=== PATIENT | female | born 1985 | race African-American/Black ===

== ENCOUNTER 2016-10-27 18:16 | Emergency (ER) | payer SELFPAY ==
[~2016-10-27 18:16] MED LIST: ALBU8I INH; AZIT250T74 PO; DILA100C PO; DUONI INH; GUAI600 PO; LACT PO; LORTA5 PO; NEBUMIS6 INH; NOVORP2 SQ; PRED10PA PO; PRED5TAB PO; PROT40TA PO; REGL5TAB PO
[2016-10-27 18:22] VITALS: BP 143/75; PULSE 104; RESP 17; TEMP 98.1; O2SAT 98
[2016-10-27] MEDS ORDERED: ONDANSETRON HCL 4 MG/2 ML VIAL IV PUSH ONE (18:30)
[2016-10-27] MEDS ORDERED: methylPREDNISolone SOD SUCC 125 MG/2 ML VIAL IV PUSH ONE (18:30)
[2016-10-27] MEDS ORDERED: SODIUM CHLOR 0.9% 1000 ML INJ 1,000 ML IV ONE (18:30)
[2016-10-27] MEDS ORDERED: ACETAMINOPHEN 500 MG CPLT PO ONE (18:30)
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
[2016-10-27] MEDS ORDERED: RESP: ALBUTEROL 2.5 MG/IPRATROPIUM 0.5 MG NEB (PRN) ONE (18:39)
[2016-10-27] MEDS: RESP: ALBUTEROL 2.5 MG/IPRATROPIUM 0.5 MG NEB (SCH) INH ×3 (18:40→18:48)
--- NOTE | 2016-10-27 19:13 | RADRPT ---
EXAM DATE/TIME: 10/27/2016 18:24 [facility] COMPARISON: CHEST SINGLE AP, February 13, 2014, 15:44. INDICATIONS : Cough for 3 days. MEDICAL HISTORY : None. SURGICAL HISTORY : None. ENCOUNTER: Initial ACUITY: 1 day PAIN SCORE: 0/10 LOCATION: Bilateral chest FINDINGS: A single view of the chest demonstrates the lungs to be symmetrically aerated without evidence of mas s, infiltrate or effusion. The cardiomediastinal contours are unremarkable. Osseous structures are intact. CONCLUSION: No acute disease. There is no evidence of pneumonia. Mello Valdes MD on October 27, 2016 at 19:11 Board Certified Radiologist. This report was verified electronically.
[2016-10-27 19:19] LABS: AUTOMATED NEUTROPHIL # 6.8 TH/MM3 (1.8-7.7); BASOPHIL % 0.4 % (0.0-2.0); EOSINOPHIL # 0.3 TH/MM3 (0-0.4); EOSINOPHIL % 2.2 % (0.0-4.0); HEMATOCRIT 37.8 % (35.0-46.0); HEMO FLAGS DIFF FINAL; LYMPH % 35.5 % (9.0-44.0); LYMPHOCYTE # 4.5 TH/MM3 (1.0-4.8); MEAN CORPUSCULAR HEMOGLOBIN 22.7 PG (27.0-34.0); MEAN CORPUSCULAR HGB CONC 30.6 % (32.0-36.0); NEUT % 53.9 % (16.0-70.0); PLATELET COUNT 393 TH/MM3 (150-450); RED CELL DISTRIBUTION WIDTH 18.5 % (11.6-17.2); WHITE BLOOD COUNT 12.6 TH/MM3 (4.0-11.0)
[2016-10-27] MEDS ORDERED: ABIL30TA2 PO (19:25)
[2016-10-27] MEDS ORDERED: NOVORP2 SQ (19:25)
[2016-10-27] MEDS ORDERED: VENTAER INH (19:25)
[2016-10-27] MEDS ORDERED: PRED10PA PO (19:25)
[2016-10-27] MEDS ORDERED: PRED5TAB PO (19:25)
[2016-10-27] MEDS ORDERED: MUCI30TA2 PO (19:25)
[2016-10-27] MEDS ORDERED: DILA100C PO (19:25)
[2016-10-27] MEDS ORDERED: ZITH250T PO (19:25)
[2016-10-27] MEDS ORDERED: PROT40TA PO (19:25)
[2016-10-27] MEDS ORDERED: ALBU0.08 NEB (19:25)
[2016-10-27] MEDS ORDERED: REGL5TAB PO (19:25)
[2016-10-27] MEDS ORDERED: NORC5TAB PO (19:25)
[2016-10-27 19:33] LABS: ANION GAP 8 MEQ/L (5-15); AST (GOT) 12 U/L (15-37); BICARBONATE 23.2 MEQ/L (21.0-32.0); BLOOD UREA NITROGEN 8 MG/DL (7-18); CHLORIDE 104 MEQ/L (98-107); GLOMERULAR FILTRATION RATE 126 ML/MIN (>89); SODIUM (NA) 135 MEQ/L (136-145)
[2016-10-27 19:34] LABS: ALT (GPT) 21 U/L (10-53)
[2016-10-27 19:36] LABS: ALKALINE PHOSPHATASE 140 U/L (45-117); TOTAL BILIRUBIN ADULT 0.2 MG/DL (0.2-1.0)
[2016-10-27] MEDS ORDERED: PRED20 PO (19:58)
[2016-10-27] MEDS ORDERED: AZIT250T3 PO (19:58)
[2016-10-27] MEDS ORDERED: ALBUAER3 INH (19:58)
[2016-10-27] MEDS ORDERED: ZOFR4TAB3 SL (20:07)
== END 2016-10-27 21:06 | disposition home or self-care (01) ==
LOC: NEPD 18:16
DX: J20.9 Acute bronchitis, unspecified (principal); J45.909 Unspecified asthma, uncomplicated; Z72.0 Tobacco use; N28.9 Disorder of kidney and ureter, unspecified; E10.9 Type 1 diabetes mellitus without complications; Z79.4 Long term (current) use of insulin; I10 Essential (primary) hypertension; D50.9 Iron deficiency anemia, unspecified
CPT/HCPCS: 71010; 80053; 85025; 87804; 94640; 94664; 96374; 96375; 99285; J2405; J2930; J7030

== ENCOUNTER 2017-02-16 15:15 | Emergency (ER) | payer OTHER ==
[~2017-02-16] VITALS: Ht 144.8 cm; Wt 84.0 kg
[~2017-02-16 15:15] MED LIST changes: +ABIL30TA5 PO; +ALBU0.08 NEB; -ALBU8I INH; +ALBUAER3 INH; +AZIT250T3 PO; -AZIT250T74 PO; -DUONI INH; -GUAI600 PO; +HUMIBIDDM PO; -LACT PO; -LORTA5 PO; +NORC5TAB PO; +PRED20 PO; +VENTAER INH; +ZITH250T PO; +ZOFR4TAB3 SL
[2017-02-16 15:23] VITALS: BP 117/66; PULSE 106; RESP 16; TEMP 99.6; O2SAT 99
[2017-02-16] MEDS ORDERED: DULO20 PO (15:39)
[2017-02-16] MEDS ORDERED: SODIUM CHLORIDE 0.9% FLUSH 10 ML FLUSH IVF PRN (16:30)
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
[2017-02-16 17:01] LABS: AUTOMATED NEUTROPHIL # 16.6 TH/MM3 (1.8-7.7); BASOPHIL # 0.1 TH/MM3 (0-0.2); BASOPHIL % 0.4 % (0.0-2.0); EOSINOPHIL % 0.1 % (0.0-4.0); HEMATOCRIT 36.9 % (35.0-46.0); HEMOGLOBIN 11.7 GM/DL (11.6-15.3); LYMPH % 8.1 % (9.0-44.0); LYMPHOCYTE # 1.6 TH/MM3 (1.0-4.8); MEAN CELL VOLUME 73.4 FL (80.0-100.0); MEAN CORPUSCULAR HEMOGLOBIN 23.2 PG (27.0-34.0); MEAN CORPUSCULAR HGB CONC 31.6 % (32.0-36.0); MEAN PLATELET VOLUME 7.1 FL (7.0-11.0); MONOCYTE # 1.2 TH/MM3 (0-0.9); NEUT % 85.4 % (16.0-70.0); PLATELET COUNT 432 TH/MM3 (150-450); RED BLOOD COUNT 5.02 MIL/MM3 (4.00-5.30); RED CELL DISTRIBUTION WIDTH 17.4 % (11.6-17.2); WHITE BLOOD COUNT 19.4 TH/MM3 (4.0-11.0)
[2017-02-16 17:16] LABS: BICARBONATE 25.9 MEQ/L (21.0-32.0); BLOOD UREA NITROGEN 9 MG/DL (7-18); CALCIUM 9.1 MG/DL (8.5-10.1); CHLORIDE 105 MEQ/L (98-107); CREATININE 0.88 MG/DL (0.50-1.00); GLOMERULAR FILTRATION RATE 91 ML/MIN (>89); GLUCOSE,RANDOM 106 MG/DL (74-106); SODIUM (NA) 139 MEQ/L (136-145)
[2017-02-16] MEDS ORDERED: CYCLOBENZAPRINE HCL 10 MG TAB PO ONE (17:30)
[2017-02-16] MEDS ORDERED: ACETAMINOPHEN/HYDROcodone 325 MG/5 MG TAB PO ONE (17:30)
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
[2017-02-16 19:55] VITALS: BP 135/69; PULSE 88; RESP 20; O2SAT 95
[2017-02-16 20:50] VITALS: BP 137/71
== END 2017-02-16 21:00 | disposition home or self-care (01) ==
LOC: NEPD 15:15
DX: S39.92XA Unspecified injury of lower back, initial encounter (principal); D64.9 Anemia, unspecified; J45.909 Unspecified asthma, uncomplicated; E11.9 Type 2 diabetes mellitus without complications; I10 Essential (primary) hypertension; F12.10 Cannabis abuse, uncomplicated; V03.00XA Pedestrian on foot injured in collision with car, pick-up truck or van in nontraffic accident, initial encounter; Z72.0 Tobacco use
CPT/HCPCS: 70450; 72125; 72128; 72131; 80048; 80307; 84703; 85025; 99285; P9612

== ENCOUNTER 2017-06-20 20:28 | Emergency (ER) | payer SELFPAY ==
[~2017-06-20] VITALS: Ht 144.8 cm; Wt 70.0 kg
[~2017-06-20 20:28] MED LIST changes: -AZIT250T3 PO; +DULO20 PO; -NEBUMIS6 INH; -PRED10PA PO; -PRED20 PO; -VENTAER INH; -ZITH250T PO
[2017-06-20 21:11] VITALS: BP 114/57; PULSE 72; RESP 18; TEMP 98.9; O2SAT 100
[2017-06-20] MEDS ORDERED: SODIUM CHLOR 0.9% 1000 ML INJ 1,000 ML IV SCH (21:29)
[2017-06-20] MEDS ORDERED: SODIUM CHLORIDE 0.9% FLUSH 10 ML FLUSH IV FLUSH PRN (21:30)
[2017-06-20] MEDS ORDERED: methylPREDNISolone SOD SUCC 125 MG/2 ML VIAL IV PUSH ONE (21:30)
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
[2017-06-20] MEDS ORDERED: MORPHINE SULFATE 4 MG/ML INJ IV PUSH ONE (21:45)
[2017-06-20] MEDS ORDERED: ONDANSETRON ODT 4 MG TAB PO ONE (21:45)
[2017-06-20] MEDS: RESP: ALBUTEROL 2.5 MG/IPRATROPIUM 0.5 MG NEB (SCH) INH ×2 (22:04→22:05)
--- NOTE | 2017-06-20 22:11 | RADRPT ---
EXAM DATE/TIME: 06/20/2017 21:44 [facility] COMPARISON: CHEST SINGLE AP, October 27, 2016, 18:24. INDICATIONS : Mid-hest pain, shortness of breath, and cough. MEDICAL HISTORY : Hypertension. Asthma. SURGICAL HISTORY : None. ENCOUNTER: Initial ACUITY: 1 day PAIN SCORE: 7/10 LOCATION: Bilateral chest FINDINGS: A single view of the chest demonstrates the lungs to be symmetrically aerated without evidence of mas s, infiltrate or effusion. The cardiomediastinal contours are unremarkable. Osseous structures are intact. CONCLUSION: Normal one view chest x-ray. Girish Osborne MD on June 20, 2017 at 22:08 Board Certified Radiologist. This report was verified electronically.
[2017-06-20 22:12] LABS: BASOPHIL # 0.1 TH/MM3 (0-0.2); BASOPHIL % 0.5 % (0.0-2.0); EOSINOPHIL # 0.3 TH/MM3 (0-0.4); EOSINOPHIL % 1.8 % (0.0-4.0); HEMATOCRIT 37.9 % (35.0-46.0); HEMOGLOBIN 12.3 GM/DL (11.6-15.3); LYMPH % 32.9 % (9.0-44.0); LYMPHOCYTE # 5.1 TH/MM3 (1.0-4.8); MEAN CELL VOLUME 73.7 FL (80.0-100.0); MEAN CORPUSCULAR HEMOGLOBIN 23.8 PG (27.0-34.0); MEAN CORPUSCULAR HGB CONC 32.3 % (32.0-36.0); MONO % 7.1 % (0.0-8.0); MONOCYTE # 1.1 TH/MM3 (0-0.9); NEUT % 57.7 % (16.0-70.0); PLATELET COUNT 466 TH/MM3 (150-450); RED BLOOD COUNT 5.14 MIL/MM3 (4.00-5.30); RED CELL DISTRIBUTION WIDTH 17.8 % (11.6-17.2); WHITE BLOOD COUNT 15.6 TH/MM3 (4.0-11.0)
[2017-06-20 22:25] LABS: PROTHROMBIN TIME - PATIENT 10.2 SEC (9.8-11.6)
[2017-06-20 22:31] LABS: ALKALINE PHOSPHATASE 125 U/L (45-117); TOTAL BILIRUBIN ADULT 0.3 MG/DL (0.2-1.0)
[2017-06-20 22:35] LABS: ALBUMIN 3.3 GM/DL (3.4-5.0); ALT (GPT) 16 U/L (10-53); AST (GOT) 14 U/L (15-37); BICARBONATE 26.3 MEQ/L (21.0-32.0); BLOOD UREA NITROGEN 6 MG/DL (7-18); CALCIUM 8.5 MG/DL (8.5-10.1); CHLORIDE 105 MEQ/L (98-107); GLOMERULAR FILTRATION RATE 118 ML/MIN (>89); GLUCOSE,RANDOM 87 MG/DL (74-106); SODIUM (NA) 140 MEQ/L (136-145)
[2017-06-21] MEDS ORDERED: KETOROLAC TROMETHAMINE 30 MG/ML (IVP) VIAL IV PUSH ONE (00:15)
[2017-06-21] MEDS ORDERED: guaiFENesin/CODEINE SYRUP 200 MG/20 MG/10 ML CUP PO ONE (00:15)
[2017-06-21] MEDS ORDERED: GUAISYP4 PO (00:30)
[2017-06-21] MEDS ORDERED: IBUP-232 PO (00:30)
[2017-06-21] MEDS ORDERED: OSELTAMIVIR PHOSPHATE 75 MG CAP PO ONE (00:30)
[2017-06-21] MEDS ORDERED: ZOFR4TAB PO (00:30)
--- NOTE | 2017-06-21 00:33 | PD ---
Physical Exam Date Seen by Provider: Jun 21, 2017 Time Seen by Provider: 00:20 Narrative Patient reports she was flu positive at the other hospital she was treated that she had left after they want to admit her now she is coming in with worsening shortness of breath she has been given duo nebs prednisone x-rays done no obvious findings on the x-ray that looks clear read as no acute disease patient is given Toradol IV as well as Robitussin-AC on top of the meds given to him by the prior provider and she is discharged with a prescription for Zofran and Robitussin-AC to add to the meds she is [place] taking for her flu symptoms she has a prescription for Tamiflu unfortunately is too expensive for her to fill she reports I give 1 dose of Tamiflu p.o. in the ER Data Data Last Documented VS Vital Signs Date Time Temp Pulse Resp B/P (MAP) Pulse Ox O2 Delivery O2 Flow Rate FiO2 06/20/17 21:11 98.9 72 18 114/57 (76) 100 Orders Orders Complete Blood Count With Diff (06/20/17 21:29) Comprehensive Metabolic Panel (06/20/17 21:29) Lipase (06/20/17 21:29) Prothrombin Time / Inr (Pt) (06/20/17 21:29) Act Partial Throm Time (Ptt) (06/20/17 21:29) Urinalysis - C+S If Indicated (06/20/17 21:29) Iv Access Insert/Monitor (06/20/17 21:29) Ecg Monitoring (06/20/17 21:29) Oximetry (06/20/17 21:29) Sodium Chlor 0.9% 1000 Ml Inj (Ns 1000 M (06/20/17 21:29) Sodium Chloride 0.9% Flush (Ns Flush) (06/20/17 21:30) Ed Urine Pregnancytest Poc (06/20/17 21:29) B-Type Natriuretic Peptide (06/20/17 21:29) Chest, Single Ap (06/20/17 21:29) Methylprednisolone So Succ Inj (Solumedr (06/20/17 21:30) Albuterol-Ipratropium Neb (Duoneb Neb) (06/20/17 21:30) Ondansetron Odt (Zofran Odt) (06/20/17 21:45) Morphine Inj (Morphine Inj) (06/20/17 21:45) Guaifen-Cod 200-20 Mg/10ml Liq (Robituss (06/21/17 00:15) Ketorolac Inj (Toradol Inj) (06/21/17 00:15) Oseltamivir (Tamiflu) (06/21/17 00:30) Labs Laboratory Tests Test 06/20/17 21:40 White Blood Count 15.6 TH/MM3 Red Blood Count 5.14 MIL/MM3 Hemoglobin 12.3 GM/DL Hematocrit 37.9 % Mean Corpuscular Volume 73.7 FL Mean Corpuscular Hemoglobin 23.8 PG Mean Corpuscular Hemoglobin Concent 32.3 % Red Cell Distribution Width 17.8 % Platelet Count 466 TH/MM3 Mean Platelet Volume 7.0 FL Neutrophils (%) (Auto) 57.7 % Lymphocytes (%) (Auto) 32.9 % Monocytes (%) (Auto) 7.1 % Eosinophils (%) (Auto) 1.8 % Basophils (%) (Auto) 0.5 % Neutrophils # (Auto) 9.0 TH/MM3 Lymphocytes # (Auto) 5.1 TH/MM3 Monocytes # (Auto) 1.1 TH/MM3 Eosinophils # (Auto) 0.3 TH/MM3 Basophils # (Auto) 0.1 TH/MM3 CBC Comment DIFF FINAL Differential Comment Prothrombin Time 10.2 SEC Prothromb Time International Ratio 1.0 RATIO Activated Partial Thromboplast Time 29.0 SEC Blood Urea Nitrogen 6 MG/DL Creatinine 0.70 MG/DL Random Glucose 87 MG/DL Total Protein 8.0 GM/DL Albumin 3.3 GM/DL Calcium Level 8.5 MG/DL Alkaline Phosphatase 125 U/L Aspartate Amino Transf (AST/SGOT) 14 U/L Alanine Aminotransferase (ALT/SGPT) 16 U/L Total Bilirubin 0.3 MG/DL Sodium Level 140 MEQ/L Potassium Level 3.6 MEQ/L Chloride Level 105 MEQ/L Carbon Dioxide Level 26.3 MEQ/L Anion Gap 9 MEQ/L Estimat Glomerular Filtration Rate 118 ML/MIN B-Type Natriuretic Peptide 4 PG/ML Lipase 69 U/L [facility] Medical Record Reviewed: Yes Supervised Visit with DORIAN: Yes Diagnosis Primary Impression: Bronchitis Patient Instructions: General Instructions, Influenza (ED) Scripts Ibuprofen (Ibuprofen) 600 Mg Tab 600 MG PO Q6H Y for Pain/Inflammation, #40 TAB 0 Refills Prov: Jesus Garsia MD 06/21/17 Guaifenesin-Codeine Liq (Guaifenesin AC Liq) 100-10 Mg/5 Ml Syrp 10 ML PO Q6H Y for COUGH, #1 BOTTLE 0 Refills Prov: Jesus Garsia MD 06/21/17 Ondansetron (Zofran) 4 Mg Tab 4 MG PO Q6HR Y for NAUSEA OR VOMITING, #10 TAB 0 Refills Prov: Jesus Garsia MD 06/21/17 Disposition: 01 DISCHARGE HOME Condition: Good Jesus Garsia MD Jun 21, 2017 00:32
== END 2017-06-21 01:09 | disposition home or self-care (01) ==
LOC: NEPE 20:28
DX: J40 Bronchitis, not specified as acute or chronic (principal); F12.90 Cannabis use, unspecified, uncomplicated; E11.9 Type 2 diabetes mellitus without complications; F31.9 Bipolar disorder, unspecified; R06.02 Shortness of breath; Z79.4 Long term (current) use of insulin; Z79.899 Other long term (current) drug therapy
CPT/HCPCS: 71045; 80053; 83690; 83880; 84703; 85025; 85610; 85730; 94640; 94664; 96361; 96374; 96375; 99284; J1885; J2270; J2930; J7030